=== PATIENT | female | born 1955 | race Caucasian/White ===

== ENCOUNTER 2017-12-15 17:48 | Emergency (ER) | payer MEDICARE, OTHER, MEDICAID ==
[~2017-12-15] VITALS: Ht 167.6 cm; Wt 146.7 kg
[~2017-12-15 17:48] MED LIST: ALBU6.7H INH; ALEN70TA13 PO; FURO-150 PO; MELO-102 PO; POTA10TA10 PO; PRED10TA PO; SPIIN IH; SYN0.1T PO; TRAM50TA2 PO
[2017-12-15 18:23] VITALS: BP 125/49
== END 2017-12-15 19:48 | disposition left against medical advice (07) ==
LOC: ER 17:49
DX: R19.7 Diarrhea, unspecified (principal); Z53.21 Procedure and treatment not carried out due to patient leaving prior to being seen by health care provider

== ENCOUNTER 2018-09-13 12:28 | Day surgery (SDC) | payer MEDICARE, MEDICAID ==
[~2018-09-13] VITALS: Ht 167.6 cm; Wt 145.4 kg
[2018-09-13 12:47] VITALS: BP 151/56
[2018-09-13] MEDS ORDERED: FURO-150 PO (12:48)
[2018-09-13] MEDS ORDERED: HYDR-4383 PO (12:51)
[2018-09-13] MEDS ORDERED: AMYL1CAP55 PO (12:52)
[2018-09-13] MEDS ORDERED: LEVO125T PO (12:52)
[2018-09-13] MEDS ORDERED: DONE10TA7 PO (12:53)
[2018-09-13] MEDS ORDERED: SIMV20TA5 PO (12:53)
[2018-09-13] MEDS ORDERED: LISI10TA4 PO (12:54)
[2018-09-13] MEDS ORDERED: GABA-532 PO (12:54)
[2018-09-13] MEDS ORDERED: ALPR0.5T8 PO (12:55)
[2018-09-13] MEDS ORDERED: MIRT30TA8 PO (12:55)
[2018-09-13] MEDS ORDERED: MIDAZolam 5mg/5ml vial ONE (13:24)
[2018-09-13] MEDS ORDERED: LIDOcaine Viscous 15ml cup ONE (13:24)
[2018-09-13] MEDS ORDERED: fentaNYL/PF 50MCG/1 ML 2ML syringe ONE (13:24)
[2018-09-13 15:03] VITALS: BP 103/41
[2018-09-13 15:13] VITALS: BP 115/56
[2018-09-13 15:23] VITALS: BP 105/45
[2018-09-13 15:33] VITALS: BP 102/54
[2018-09-13 15:43] VITALS: BP 108/45
== END 2018-09-13 15:55 | disposition home or self-care (01) ==
LOC: GI LAB 12:28
PROVIDERS: ATTEND Internal Medicine Gastroenterology
DX: K63.5 Polyp of colon (principal); K29.50 Unspecified chronic gastritis without bleeding; B96.81 Helicobacter pylori [H. pylori] as the cause of diseases classified elsewhere; D50.9 Iron deficiency anemia, unspecified; K57.30 Diverticulosis of large intestine without perforation or abscess without bleeding; K64.8 Other hemorrhoids
CPT/HCPCS: 43239; 45385; 99153; G0500; J2250; J3010; J7030; 88305; 88342; 99152; A4620